=== PATIENT | male | born 1955 | race Caucasian/White ===

== ENCOUNTER 2016-12-06 07:46 | Day surgery (SDC) | payer BC ==
[2016-12-04 09:35] VITALS: BMI 25.2
[~2016-12-06 07:46] MED LIST: LACTATED RINGERS 1,000 ML IV SCH
[2016-12-06 08:39] VITALS: RESP 16; TEMP 96.9
[2016-12-06] MEDS ORDERED: LIDOCAINE 1% INJ 10MG/ML (20 ML MDV) ONE (09:00)
[2016-12-06] MEDS ORDERED: PROPOFOL 10 MG/ML 20 ML VIAL IV ONE (09:00)
--- NOTE | 2016-12-06 09:13 | P.PCN ---
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 His last upper endoscopy was done in 2013 and was noted to have chronic gastritis but no evidence of recurrence gastric carcinoid. PROCEDURE PERFORMED: Esophagogastroduodenoscopy with biopsy. PREOPERATIVE DIAGNOSIS: Follow-up gastric carcinoid and autoimmune gastritis. IV sedation per anesthesia. PROCEDURE: After informed consent was obtained, the patient was brought into the endoscopy unit. IV conscious sedation was administered by Anesthesia under continuous monitoring. Initially the Olympus GIF-140 video endoscope was inserted into the mouth. Esophagus intubated without any difficulty. It was gradually advanced into the stomach and duodenum and carefully examined. The bulb and the second part of the duodenum appeared normal. The scope at this time was withdrawn to the stomach, adequately insufflated with air, and upon careful examination, mucosa of the antrum, had mild gastritis and biopsies were done from this area. In the proximal body of the stomach there was a 5-6 mm slightly raised submucosal nodule identified and multiple biopsies from this area. There was mild gastritis also noted in the proximal body of the stomach. The rest of the cardia and the fundus appeared normal. The scope was then withdrawn into the esophagus. The GE junction was located at 39 cm from the incisors. The esophagus appeared normal. There were no erosions or ulcerations seen and the patient tolerated the procedure well. IMPRESSION: 1. Mild antral gastritis. 2. 5-6 mm soft mucosal polyp in the proximal gastric body status post biopsies. RECOMMENDATIONS: The findings of this examination were discussed with the patient as well as his family. He was advised to follow with the biopsy results. Based on the biopsy results will plan a repeat surveillance upper endoscopy in 1-2 years.
[2016-12-06 09:36] VITALS: BP 105/62; PULSE 49
--- NOTE | 2016-12-10 11:06 | CDI ---
Dear Dr. Love The operative report documents Conscious Sedation with continuous monitoring by Anesthesia. The Anesthesia Record, however, documents that MAC (Monitored Anesthesia Care) was provided. MAC means that the patient is unconscious. This is conflicting documentation that needs clarification. Please clarify if the sedation provided Ronald Albert was Conscious/Moderate Sedation or Unconscious sedation. Please document this clarification as an addendum to the operative report. Thank you for your time, [facility] Outpatient Discovery Manager [employer] [email or web address] [facility]
--- NOTE | 2016-12-13 08:25 | CDI ---
Dear Dr. Love The operative report documents Conscious Sedation with continuous monitoring by Anesthesia. The Anesthesia Record, however, documents that MAC (Monitored Anesthesia Care) was provided. MAC means that the patient is unconscious. This is conflicting documentation that needs clarification. Please clarify if the sedation provided Ronald Albert was Conscious/Moderate Sedation or Unconscious sedation. PLEASE DOCUMENT THIS CLARIFICATION AN ADDENDUM TO THE PROCEDURE NOTE. Thank you for your time, Joyce [facility] Outpatient Commissioner [employer] [email or web address] [facility]
--- NOTE | 2016-12-20 11:52 | PCN ---
ADDENDUM TO PROCEDURE NOTE: General anesthesia was used instead of IV conscious sedation was utilized.
== END 2016-12-06 09:57 | disposition home or self-care (01) ==
LOC: ORWHC2ENDO 07:46
PROVIDERS: ATTEND Internal Medicine Gastroenterology
DX: C7A.092 Malignant carcinoid tumor of the stomach (principal); K29.50 Unspecified chronic gastritis without bleeding; I25.10 Atherosclerotic heart disease of native coronary artery without angina pectoris; I25.2 Old myocardial infarction; Z95.5 Presence of coronary angioplasty implant and graft; Z79.02 Long term (current) use of antithrombotics/antiplatelets; Z79.82 Long term (current) use of aspirin; Z79.899 Other long term (current) drug therapy
CPT/HCPCS: 88305; 88342; 88341; 43239; J2001; J2704

== ENCOUNTER → 2016-12-19 | Outpatient (CLI) | payer BC ==
--- NOTE | 2016-12-19 09:04 | FL ---
EXAMINATION TYPE: FL barium swallow DATE OF EXAM: 12/19/2016 8:52 AM CLINICAL HISTORY: Left-sided neck swelling or mass, palpable lump on and off for 3 years with upper d ysphagia TECHNIQUE: A double contrast esophagram is performed utilizing air and barium. A total of 84 second s of fluoroscopic time was utilized during procedure. COMPARISON: None FINDINGS: The esophagus shows normal motility and emptying into the stomach. No evidence of hiatal h ernia or stricture noted. No abnormal outpouching or diverticulum is present. There is some irregular ity in the distal mucosal on review of images saved small ulcers identified. No significant gastroeso phageal reflux was seen during real time performance of this study. IMPRESSION: No esophageal diverticulum seen. Review of images shows irregularity of the distal muco sage just above diaphragmatic hiatus over a short segment, consider focal ulceration related to esopha gitis, mucosal lesion or neoplasm is not entirely excluded. Advise direct visualization to further ev aluate this level.
== END | disposition home or self-care (01) ==
LOC: RADFLWHC 07:59
PROVIDERS: ATTEND Otolaryngology
DX: R22.1 Localized swelling, mass and lump, neck (principal); R68.89 Other general symptoms and signs
CPT/HCPCS: 74220

== ENCOUNTER → 2017-01-07 | Outpatient (CLI) | payer BC ==
--- NOTE | 2017-01-07 08:06 | CT ---
EXAMINATION TYPE: CT soft tissue neck w con DATE OF EXAM: 01/07/2017 7:31 AM COMPARISON: NONE HISTORY: Lt Globus Pharyngeous mass CT DLP: 465.1 mGycm CONTRAST: CT scan of the neck is performed with IV Contrast, patient injected with 100 mL of Omnipaque 300. Contrast enhanced CT of the neck was performed from the skull base through the lung apices. AIRWAY: The supraglottic, glottic, and subglottic portions of the airway appear patent and free of mass. SALIVARY GLANDS: The submandibular and parotid glands are free of mass or inflammatory process. THYROID GLAND: No nodules or masses seen. LYMPH NODES: No adenopathy seen greater than 1cm. LUNG APICES: No nodule or mass is seen. OTHER: Vascular structures are patent. Mild degenerative change of the cervical spine. No abscess s een. IMPRESSION: No distinct abnormality to account for the patient's symptoms.
== END ==
LOC: RADCTMAIN 07:00
PROVIDERS: ATTEND Otolaryngology
DX: R22.1 Localized swelling, mass and lump, neck (principal); R13.10 Dysphagia, unspecified
CPT/HCPCS: 70491; Q9967

== ENCOUNTER 2019-01-01 08:19 | Day surgery (SDC) | payer BC ==
[2018-12-30 17:14] VITALS: BMI 25.2
[~2019-01-01 08:19] MED LIST changes: +LIDOCAINE 1% 20 ML VIAL (10MG/ML) FOR IV START INTRADERMA PRN
[2019-01-01 08:52] VITALS: RESP 16; TEMP 96.8
[2019-01-01] MEDS ORDERED: LIDOCAINE 1% INJ 10MG/ML (20 ML MDV) ONE (09:12)
[2019-01-01] MEDS ORDERED: PROPOFOL 10 MG/ML 20 ML VIAL IV ONE (09:12)
--- NOTE | 2019-01-01 09:22 | P.PCN ---
Date of Procedure: 01/01/19 Procedure(s) Performed: BRIEF HISTORY: Patient is a 63-year-old, pleasant, white male, scheduled for an upper endoscopy as a part of evaluation of chronic autoimmune gastritis/gastric ulcer diagnosed in 2009. He denies any GI symptoms.. PROCEDURE PERFORMED: Esophagogastroduodenoscopy with biopsy. PREOPERATIVE DIAGNOSIS: Follow-up chronic autoimmune gastritis/gastric carcinoid. IV sedation per anesthesia. PROCEDURE: After informed consent was obtained, the patient was brought into the endoscopy unit. IV sedation was administered by Anesthesia under continuous monitoring. Initially the Olympus GIF-140 video endoscope was inserted into the mouth. Esophagus intubated without any difficulty. It was gradually advanced into the stomach and duodenum and carefully examined. The bulb and the second part of the duodenum appeared normal. The scope at this time was withdrawn to the stomach, adequately insufflated with air, and upon careful examination, mucosa of the antrum, body, had mild diffuse gastritis and biopsies were done from this area. No polyps identified. The cardia and the fundus appeared normal. The scope was then withdrawn into the esophagus. The GE junction was located at 45 cm from the incisors. The esophagus appeared normal. There were no erosions or ulcerations seen and the patient tolerated the procedure well. IMPRESSION: 1. Mild diffuse gastritis. 2. No evidence of gastric polyps or gastric carcinoid. RECOMMENDATIONS: The findings of this examination were discussed with the patient as well as his family. He was advised to follow with the biopsy results. If the biopsies are negative can have a repeat surveillance upper endoscopy in 1-2 years.
[2019-01-01 09:45] VITALS: BP 117/70; PULSE 65
== END 2019-01-01 10:09 | disposition home or self-care (01) ==
LOC: ORWHC2ENDO 08:19
PROVIDERS: ATTEND Internal Medicine Gastroenterology
DX: K29.50 Unspecified chronic gastritis without bleeding (principal); K44.9 Diaphragmatic hernia without obstruction or gangrene; I25.2 Old myocardial infarction; I10 Essential (primary) hypertension; E78.5 Hyperlipidemia, unspecified; Z95.5 Presence of coronary angioplasty implant and graft; Z79.899 Other long term (current) drug therapy
CPT/HCPCS: 88305; 43239; J2001; J2704

== ENCOUNTER 2021-01-24 08:39 | Day surgery (SDC) | payer BC ==
[2021-01-23 09:06] VITALS: BMI 25.3
[~2021-01-24 08:39] MED LIST changes: +LIDOCAINE 1% (10MG/ML) FOR IV START INTRADERMA PRN; -LIDOCAINE 1% 20 ML VIAL (10MG/ML) FOR IV START INTRADERMA PRN
[2021-01-24 09:18] VITALS: TEMP 97.2
[2021-01-24] MEDS ORDERED: LACTATED RINGERS 1,000 ML IV ONE (09:20)
[2021-01-24] MEDS ORDERED: PROPOFOL 10 MG/ML 20 ML VIAL IV ONE (10:00)
[2021-01-24] MEDS ORDERED: LIDOCAINE 1% INJ 10MG/ML (20 ML MDV) ONE (10:00)
--- NOTE | 2021-01-24 10:10 | P.PCN ---
Date of Procedure: 01/24/21 Procedure(s) Performed: BRIEF HISTORY: Patient is a 65-year-old, pleasant, white male scheduled for an upper endoscopy as a part of surveillance of history of chronic autoimmune gastritis and gastric ulcer diagnosed in 2009. His last EGD was 2 years ago.. PROCEDURE PERFORMED: Esophagogastroduodenoscopy with biopsy. PREOPERATIVE DIAGNOSIS: Follow-up autoimmune gastritis/gastric carcinoid. IV sedation per anesthesia. PROCEDURE: After informed consent was obtained, the patient was brought into the endoscopy unit. IV sedation was administered by Anesthesia under continuous monitoring. Initially the Olympus GIF-140 video endoscope was inserted into the mouth. Esophagus intubated without any difficulty. It was gradually advanced into the stomach and duodenum and carefully examined. The bulb and the second part of the duodenum appeared normal. The scope at this time was withdrawn to the stomach, adequately insufflated with air, and upon careful examination, mucosa of the antrum, body, and mild diffuse gastritis and biopsies were done from this area. The cardia and the fundus appeared normal. The scope was then withdrawn into the esophagus. The GE junction was located at 39 cm from the incisors. The esophagus appeared normal. There were no erosions or ulcerations seen and the patient tolerated the procedure well. IMPRESSION: 1. Mild diffuse gastritis involving the body and antrum of the stomach status post multiple biopsies. 2. No evidence of gastric polyps. RECOMMENDATIONS: The findings of this examination were discussed with the patient as well as his family. He was advised to follow with the biopsy results. He will have a follow-up repeat upper endoscopy every 2 years.
[2021-01-24 10:28] VITALS: RESP 16
[2021-01-24 10:35] VITALS: BP 122/79; PULSE 56
== END 2021-01-24 10:55 | disposition home or self-care (01) ==
LOC: ORWHC2ENDO 08:39
PROVIDERS: ATTEND Internal Medicine Gastroenterology
DX: K29.50 Unspecified chronic gastritis without bleeding (principal); Z87.11 Personal history of peptic ulcer disease; I25.10 Atherosclerotic heart disease of native coronary artery without angina pectoris; I10 Essential (primary) hypertension; E78.5 Hyperlipidemia, unspecified; Z79.82 Long term (current) use of aspirin; Z79.899 Other long term (current) drug therapy; Z95.5 Presence of coronary angioplasty implant and graft
CPT/HCPCS: 88305; 43239; J2001; J2704